=== PATIENT | female | born 1970 | race Two or more races ===

== ENCOUNTER 2018-01-25 05:50 | Day surgery (SDC) | payer OTHER ==
[2018-01-25] VITALS (10 sets, daily range): BP systolic 98–177; BP diastolic 83–102
[~2018-01-25] VITALS: Ht 165.1 cm; Wt 90.7 kg
[2018-01-25] MEDS ORDERED: EPINEPHrine 1mg/1ml Amp ONE (06:48)
[2018-01-25] MEDS ORDERED: Bupivacaine 0.5% Inj 30 ml vial INJ ONE (06:49)
[2018-01-25] MEDS ORDERED: NKM (06:54)
[2018-01-25] MEDS ORDERED: Midazolam 2mg/2ml Inj ONE (06:59)
[2018-01-25] MEDS ORDERED: Sugammadex Sodium 200mg/2ml vial IV ONE (06:59)
[2018-01-25] MEDS ORDERED: LR 1000ml ONE (07:00)
[2018-01-25] MEDS ORDERED: Zemuron 50mg/5ml Inj IV ONE (07:00)
[2018-01-25] MEDS ORDERED: NS Irrig 4000ml IRRIG ONE (07:00)
[2018-01-25] MEDS ORDERED: Dexamethasone 4mg/ml vial ONE (07:04)
--- NOTE | 2018-01-25 07:08 | Pre-Procedure Note/Attestation ---
Pre-Procedure Note/Attestation Complete Prior to Procedure Planned Procedure: right Procedure Narrative: knee arthroscopy debridement and partial medial menisectomy Indications for Procedure Pre-Operative Diagnosis: medial mensicus tear, chondromalacia Attestation I attest that I discussed the nature of the procedure; its benefits; risks and complications; and alternatives (and the risks and benefits of such alternatives ), prior to the procedure, with the patient (or the patient's legal eligibility services representative). I attest that, if there was a reasonable possibility of needing a blood transfusion, the patient (or the patient's legal eligibility services representative) was given the [facility] standardized written summary, pursuant to the Bakari Gris Blood Safety Act ([place] Health and Safety Code # 1645, as amended). I attest that I re-evaluated the patient just prior to the surgery and that there has been no change in the patient's H&P, except as documented below: Rod Chong MD January 25, 2018 07:08
[2018-01-25] MEDS ORDERED: Labetalol 5mg/ml 20ml vial IV ONE (07:29)
[2018-01-25] MEDS ORDERED: Propofol 200mg/20ml IV ONE (07:37)
[2018-01-25] MEDS ORDERED: fentaNYL 100 mcg/2 mL IV ONE (07:39)
--- NOTE | 2018-01-25 07:59 | Anethesia Preoperative Eval ---
Anesthesia Pre-op PMH/ROS General Date of Evaluation: January 25, 2018 Time of Evaluation: 07:50 Anesthesiologist: ASA Score: ASA 2 Mallampati Score Class I : Soft palate, uvula, fauces, pillars visible Class II: Soft palate, uvula, fauces visible Class III: Soft palate, base of uvula visible Class IV: Only hard plate visible Mallampati Classification: Class III Surgical Procedure: right knee arthroscopy, debridement and partial medial menisectomy Anesthesia History: none Allergies: Coded Allergies: No Known Allergies (Unverified , 01/25/18) Medications: see eMAR Past Medical History Cardiovascular: Denies: HTN, CAD, TN, valve dz, arrhythmia, other Pulmonary: Denies: asthma, COPD, [place], other Gastrointestinal/Genitourinary: Denies: GERD, CRI, ESRD, other Neurologic/Psychiatric: Denies: dementia, CVA, depression/anxiety, TIA, other Endocrine: Denies: DM, hypothyroidism, steroids, other HEENT: Denies: cataract (L), cataract (R), glaucoma, ANIAK (L), ANIAK (R), other Hematology/Immune: Denies: anemia, DVT, bleeding disorder, other Other: obesity Anesthesia Pre-op Phys. Exam Physician Exam Last Vital Signs Date Time Temp Pulse Resp B/P (MAP) Pulse Ox O2 Delivery O2 Flow Rate FiO2 01/25/18 07:00 97.9 68 20 147/84 100 Room Air 97.9 Constitutional: NAD Cardiovascular: RRR Respiratory: CTA Gastrointestinal: S/NT/ND Airway Exam Mallampati Score: Class III MO: full ROM: full Teeth: intact, other Dentures: no upper, no lower Anesthesia Pre-op A/P Labs Chemistry Test 01/25/18 06:40 Human Chorionic Gonadotropin, Qual Negative Serum Test Test 01/25/18 06:40 Human Chorionic Gonadotropin, Qual Negative Risk Assessment & Plan Assessment: ASA 2, okay to proceed Plan: ETGA Status Change Before Surgery: No Pre-Antibiotics Drug: anccef 2 grams Given Within 1 Hr of Incision: Yes Time Given: 07:20 Lisy Hood M.D. January 25, 2018 07:59
[2018-01-25] MEDS ORDERED: DiphenhydrAMINE 50mg/ml Inj IVP PRN (08:00)
[2018-01-25] MEDS ORDERED: Metoclopramide 10mg/2ml Inj IVP PRN (08:00)
[2018-01-25] MEDS ORDERED: LR 1000ml 1,000 ML IVLG SCH (08:00)
[2018-01-25] MEDS ORDERED: fentaNYL 100 mcg/2 mL IV PRN (08:00)
[2018-01-25] MEDS ORDERED: Labetalol 5mg/ml 20ml vial IV PRN (08:00)
[2018-01-25] MEDS ORDERED: Ketorolac 30mg Inj ONE (08:12)
--- NOTE | 2018-01-25 08:40 | Immediate Post-Op Evaluation ---
Immediate Post-Op Evalulation Immediate Post-Op Evalulation Procedure: right knee arthroscopy, chondroplasty, debridement partial medial menisecto Date of Evaluation: January 25, 2018 Time of Evaluation: 08:25 IV Fluids: LR 400ml Blood Products: 0 Estimated Blood Loss: 0 Urinary Output: 0 Blood Pressure Systolic: 166 Blood Pressure Diastolic: 101 Pulse Rate: 86 Respiratory Rate: 19 O2 Sat by Pulse Oximetry: 100 Temperature (Fahrenheit): 97.7 Pain Score (1-10): 0 Nausea: No Vomiting: No Complications none Patient Status: awake, patent, none Hydration Status: adequate Drug: ancef 2 grams Given Within 1 Hr of Incision: Yes Time Given: 08:20 Lisy Hood M.D. January 25, 2018 08:40
[2018-01-26 06:40] VITALS: BP 143/86
--- NOTE | 2018-01-26 06:40 | 48 Hour Post Anesthesia Eval ---
Post Anesthesia Evaluation Procedure: right knee arthroscopy, chondroplasty, debridement partial medial menisecto Date of Evaluation: January 25, 2018 Time of Evaluation: 10:10 Blood Pressure Systolic: 143 0: 86 Pulse Rate: 77 Respiratory Rate: 20 Temperature (Fahrenheit): 97.5 O2 Sat by Pulse Oximetry: 100 Airway: patent Nausea: No Vomiting: No Pain Intensity: 0 Hydration Status: adequate Mental Status/LOC: patient returned to baseline Post-Anesthesia Complications: none Follow-up care needed: ready to discharge Lisy Hood M.D. January 26, 2018 06:40
--- NOTE | 2018-01-27 13:30 | Operative Note - Dictated ---
DATE OF OPERATION: 01/25/2018 NOTE: POOR AUDIO PREOPERATIVE DIAGNOSIS: Right knee medial meniscus tear. POSTOPERATIVE DIAGNOSIS: Right knee medial meniscus tear. Chondromalacia patella, small lateral meniscus tear SURGEON: Rod Chong M.D. INFORMATION DELIVERY ANALYST: None. ANESTHESIA: General endotracheal. A time-out was performed. Prophylactic antibiotics were administered. OPERATIVE FINDINGS: 1. Posterior horn medial meniscus tear and chondromalacia patella, grade III 3. 2. A small anterior horn lateral meniscus tear and also a lateral meniscal with a partial lateral meniscectomy. INDICATIONS FOR OPERATION: The patient is status post knee trauma. She has failed conservative measures. MRI was consistent with medial meniscus tear. She was then brought in for elective knee arthroscopy and partial medial meniscectomy. DESCRIPTION OF PROCEDURE IN DETAIL: The patient was brought into the operating room, identified as the patient. The right knee was prepped and draped in usual sterile fashion. Arthroscopic portals were established anteromedially and anterolaterally. The arthroscope was introduced into the anterolateral portal. A thorough inspection was carried out of the contents of the knee. A suprapatellar pouch was normal. The patellofemoral joint showed grade 3 chondromalacia of the retropatellar surface. Photographs were obtained. A shaver was used to debride the loose cartilage. Next, attention was directed to the lateral gutter, which was normal. The medial gutter was normal as well. The arthroscope was gently swept into the medial compartment. The chondral surfaces were intact. There was a radial tear of the posterior horn of the medial meniscus. Photographs were obtained. A small basket forceps was used to trim the meniscus back to a stable margin through the back part of the radial tear. A shaver was used to smooth the surface and remove debris. The back of the knee was massaged. All meniscal fragments were removed. The chondral surfaces remained intact. Next, attention was directed to the notch. There were large ligamentum mucosum, which was taken down aid visualization. The anterior cruciate ligament was normal. A glimpse of the posterior cruciate ligament also showed it to be intact. The arthroscope was then placed into the medial portal. A thorough inspection was carried out on the lateral meniscus. There was a small thin flap tear that was debrided using a shaver. The medial meniscus and chondral surfaces were normal. A final inspection was carried out of the knee there was no pathology and no signs of bleeding. None were encountered. Marcaine was instilled into the knee and into the portals. The subcutaneous tissue was irrigated and a subcuticular 4-0 Vicryl suture was placed into each portal. Steri-Strips were applied. The patient was awakened in the operating room and transported to the recovery room in satisfactory condition. Rod Chong M.D. DR: PEDRITO JOB#: [id number] CC: Rod Chong M.D.; [address] [place] [id number]; Fax#: [phone] [facility]
== END 2018-01-25 11:10 | disposition home or self-care (01) ==
LOC: SUR 05:50
DX: S83.241A Other tear of medial meniscus, current injury, right knee, initial encounter (principal); S83.281A Other tear of lateral meniscus, current injury, right knee, initial encounter; M24.10 Other articular cartilage disorders, unspecified site; W01.0XXA Fall on same level from slipping, tripping and stumbling without subsequent striking against object, initial encounter; Y92.9 Unspecified place or not applicable
CPT/HCPCS: 29881; 36415; 84703; 97161; J0171; J0690; J1100; J2250; J2405; J2704; J3010; J3490; J7120; S0028; 94003; 94150